=== PATIENT | male | born 1960 | race Caucasian/White ===

== ENCOUNTER → 2020-07-22 | Outpatient (CLI) | payer MEDICARE, MEDICAID ==
--- NOTE | 2020-07-22 15:55 | Diagnostic Imaging Report ---
INDICATION: Pain, status post injury. COMPARISON: None. FINDINGS: Multiple radiographic views of the right hand were obtained. Image quality is degraded by limited patient mobility. Osseous structures show no acute fracture. Joint spaces are maintained. No lytic or blastic bony lesions are seen. The soft tissues appear unremarkable. No radiopaque foreign bodies are identified. IMPRESSION: Unremarkable radiographic exam of the right hand. Dictated by: Dictated on workstation # [id number]
== END ==
LOC: RAD FS 10:35
PROVIDERS: ATTEND Family Medicine
DX: S69.91XA Unspecified injury of right wrist, hand and finger(s), initial encounter (principal)
CPT/HCPCS: 73130

== ENCOUNTER → 2020-09-01 | Outpatient (CLI) | payer MEDICARE, MEDICAID ==
--- NOTE | 2020-09-01 15:11 | Diagnostic Imaging Report ---
INDICATION: Left elbow pain. AP, oblique, and lateral views of the left elbow were obtained. No fracture or acute bony abnormality is seen. Joint spaces are unremarkable. IMPRESSION: Negative left elbow. Dictated by: Dictated on workstation # [id number]
== END ==
LOC: RAD FS 10:24
PROVIDERS: ATTEND Nurse Practitioner
DX: M25.522 Pain in left elbow (principal)
CPT/HCPCS: 73080

== ENCOUNTER 2022-01-18 13:46 | Emergency (ER) | payer MEDICARE, MEDICAID ==
--- NOTE | 2022-01-18 14:13 | ED Chest Pain ---
General Stated Complaint: CHEST PAIN History of Present Illness Date Seen by Provider: Jan 18, 2022 Time Seen by Provider: 14:00 Initial Comments 61-year-old male with PMH of cerebral palsy/mild intellectual disability from [facility]- care facility/diabetes type 2/HTN/depression/bound to wheelchair due to quadriplegia, is brought in with complaints of chest pressure radiating to left shoulder, which began today morning. Patient is a non-smoker and has an allergy to aspirin. Denies fever, abdominal pain, headache, dizziness, diarrhea, constipation. Allergies and Home Medications Allergies Coded Allergies: aspirin (Verified Allergy, Unknown, 01/18/22) Patient Home Medication List Home Medication List Reviewed: Yes Famotidine (Pepcid) 20 Mg Tablet, 20 MG PO BID Prescribed by: JANETH HERNANDES MD on 01/18/221957 Review of Systems Review of Systems Constitutional: no symptoms reported EENTM: No Symptoms Reported Respiratory: No Symptoms Reported Cardiovascular: Chest Pain Gastrointestinal: No Symptoms Reported, Other (acid reflux) Genitourinary: No Symptoms Reported Musculoskeletal: no symptoms reported Skin: no symptoms reported Psychiatric/Neurological: No Symptoms Reported Endocrine: No Symptoms Reported Hematologic/Lymphatic: No Symptoms Reported Physical Exam Vital Signs Vital Signs - First Documented 01/18/22 13:50 Temp 36.8 Pulse 99 Resp 24 B/P (MAP) 89/53 (65) Pulse Ox 96 O2 Delivery Room Air Capillary Refill : Height, Weight, BMI Height: '" Weight: lbs. oz. kg; BMI Method: General Appearance: No Apparent Distress HEENT: PERRL/EOMI Neck: Non Tender, Supple Respiratory: Chest Non Tender, Lungs Clear, Normal Breath Sounds, No Accessory Muscle Use, No Respiratory Distress Cardiovascular: Regular Rate, Rhythm Gastrointestinal: Non Tender, Soft Neurologic/Psychiatric: Alert, Oriented x3, Other (paraplegic) Lymphatic: No Adenopathy Focused Exam Lactate Level 01/18/22 14:48: Lactic Acid Level 1.20 Lactic Acid Level Laboratory Tests Test 01/18/22 14:48 Lactic Acid Level 1.20 MMOL/L (0.50-2.00) Progress/Results/Core Measures Results/Orders Lab Results Laboratory Tests Test 01/18/22 14:09 01/18/22 14:48 01/18/22 18:01 Range/Units White Blood Count 13.2 H 4.3-11.0 10^3/uL Red Blood Count 5.15 4.30-5.52 10^6/uL Hemoglobin 15.0 13.3-17.7 g/dL Hematocrit 44 40-54 % Mean Corpuscular Volume 86 80-99 fL Mean Corpuscular Hemoglobin 29 25-34 pg Mean Corpuscular Hemoglobin Concent 34 32-36 g/dL Red Cell Distribution Width 13.2 10.0-14.5 % Platelet Count 222 130-400 10^3/uL Mean Platelet Volume 10.2 9.0-12.2 fL Immature Granulocyte % (Auto) 0 % Neutrophils (%) (Auto) 67 42-75 % Lymphocytes (%) (Auto) 24 12-44 % Monocytes (%) (Auto) 6 0-12 % Eosinophils (%) (Auto) 2 0-10 % Basophils (%) (Auto) 1 0-10 % Neutrophils # (Auto) 8.9 H 1.8-7.8 10^3/uL Lymphocytes # (Auto) 3.1 1.0-4.0 10^3/uL Monocytes # (Auto) 0.9 0.0-1.0 10^3/uL Eosinophils # (Auto) 0.2 0.0-0.3 10^3/uL Basophils # (Auto) 0.1 0.0-0.1 10^3/uL Immature Granulocyte # (Auto) 0.0 0.0-0.1 10^3/uL Prothrombin Time 12.5 12.2-14.7 SEC INR Comment 0.9 0.8-1.4 Activated Partial Thromboplast Time 27 24-35 SEC D-Dimer 0.24 0.00-0.49 UG/ML Sodium Level 136 135-145 MMOL/L Potassium Level 4.8 3.6-5.0 MMOL/L Chloride Level 102 98-107 MMOL/L Carbon Dioxide Level 24 21-32 MMOL/L Anion Gap 10 5-14 MMOL/L Blood Urea Nitrogen 21 H 7-18 MG/DL Creatinine 0.85 0.60-1.30 MG/DL Estimat Glomerular Filtration Rate 99 BUN/Creatinine Ratio 25 Glucose Level 162 H 70-105 MG/DL Calcium Level 8.6 8.5-10.1 MG/DL Corrected Calcium 8.8 8.5-10.1 MG/DL Magnesium Level 1.8 1.6-2.4 MG/DL Total Bilirubin 0.2 0.1-1.0 MG/DL Aspartate Amino Transf (AST/SGOT) 15 5-34 U/L Alanine Aminotransferase (ALT/SGPT) 25 0-55 U/L Alkaline Phosphatase 108 40-136 U/L Troponin I < 0.30 < 0.30 <0.30 NG/ML Pro-B-Type Natriuretic Peptide 54.6 <125.0 PG/ML Total Protein 6.8 6.4-8.2 GM/DL Albumin 3.8 3.2-4.5 GM/DL Urine Color YELLOW Urine Clarity CLEAR Urine pH 5.5 5-9 Urine Specific [place] 1.025 H 1.016-1.022 Urine Protein NEGATIVE NEGATIVE Urine Glucose (UA) NEGATIVE NEGATIVE Urine Ketones TRACE H NEGATIVE Urine Nitrite NEGATIVE NEGATIVE Urine Bilirubin NEGATIVE NEGATIVE Urine Urobilinogen 0.2 < = 1.0 MG/DL Urine Leukocyte Esterase NEGATIVE NEGATIVE Urine RBC (Auto) NEGATIVE NEGATIVE Urine RBC RARE /HPF Urine WBC RARE /HPF Urine Squamous Epithelial Cells 0-2 /HPF Urine Crystals NONE /LPF Urine Bacteria NEGATIVE /HPF Urine Casts NONE /LPF Urine Mucus SMALL H /LPF Urine Culture Indicated NO Lactic Acid Level 1.20 0.50-2.00 MMOL/L Urine Opiates Screen NEGATIVE NEGATIVE Urine Oxycodone Screen NEGATIVE NEGATIVE Urine Methadone Screen NEGATIVE NEGATIVE Urine Propoxyphene Screen NEGATIVE NEGATIVE Urine Barbiturates Screen NEGATIVE NEGATIVE Ur Tricyclic Antidepressants Screen NEGATIVE NEGATIVE Urine Phencyclidine Screen NEGATIVE NEGATIVE Urine Amphetamines Screen NEGATIVE NEGATIVE Urine Methamphetamines Screen NEGATIVE NEGATIVE Urine Benzodiazepines Screen POSITIVE H NEGATIVE Urine Cocaine Screen NEGATIVE NEGATIVE Urine Cannabinoids Screen NEGATIVE NEGATIVE Influenza Type A (RT-PCR) Not Detected Not Detecte Influenza Type B (RT-PCR) Not Detected Not Detecte SARS-CoV-2 RNA (RT-PCR) Not Detected Not Detecte My Orders Orders - JANETH HERNANDES MD Cbc With Automated Diff (01/18/22 14:17) Comprehensive Metabolic Panel (01/18/22 14:17) Fibrin Degradation Products (01/18/22 14:17) Drug Screen Stat (Urine) (01/18/22 14:17) Lactic Acid Analyzer (01/18/22 14:17) Magnesium (01/18/22 14:17) Ua Culture If Indicated (01/18/22 14:17) Troponin I Fs (01/18/22 14:17) Protime With Inr (01/18/22 14:17) Partial Thromboplastin Time (01/18/22 14:17) Probnp Fs (01/18/22 14:17) Chest 1 View Ap/Pa Only (01/18/22 14:18) Continuous Ekg Monitoring (01/18/22 14:18) Ekg Tracing (01/18/22 14:18) Covid 19 Inhouse Test (01/18/22 14:19) Influenza A And B By Pcr (01/18/22 14:19) Ed Iv/Invasive Line Start (01/18/22 15:26) Ns Iv 1000 Ml (Sodium Chloride 0.9%) (01/18/22 15:30) Famotidine Injection (Pepcid Injection) (01/18/22 15:45) Pantoprazole Injection (Protonix Injecti (01/18/22 15:45) Troponin I Fs (01/18/22 16:00) Ekg Tracing (01/18/22 16:00) Medications Given in ED Current Medications Medications Dose Ordered Sig/Onesimo Route Start Time Stop Time Status Last Admin Dose Admin Famotidine 20 mg ONCE ONCE IVP 01/18/22 15:45 01/18/22 15:46 DC 01/18/22 15:55 20 MG Pantoprazole 40 mg ONCE ONCE IV 01/18/22 15:45 01/18/22 15:46 DC 01/18/22 15:55 40 MG Vital Signs/I&O 01/18/22 01/18/22 13:50 20:15 Temp 36.8 Pulse 99 83 Resp 24 18 B/P (MAP) 89/53 (65) 107/61 Pulse Ox 96 97 O2 Delivery Room Air Room Air Progress Progress Note : Progress Note 1. GERD: ACS RULED OUT: - CXR: unremarkable - Trop/ EKG x 2: non-ischemic - Other labs unremarkable. COVID test negative - Protonix and Pepcid in ER, with improvement and resolution of symptoms. No chest pain in the ER - Pt is already on Omeprazole - Prescription for pepcid 20mg bid for 10 days - Follow up with PCP in 3 to 5 days - Return to ER if symptoms worsen or do not improve -The patient was seen in the ED, and treated appropriately to presentation at a specific point in time. Patient is informed that there is a possibility that disease and illness can evolve and change in acuity rapidly or slowly after patient is discharged from the ER. Precautionary advice given to the patient for immediate return to ER if symptoms worsen or do not resolve, and to seek emergency care sooner rather than later. Pt also advised on the importance of PCP follow up and compliance with management and follow up plan with PCP and/or specialist, as this is part of the management plan. Pt verbally expressed understanding. Departure Impression Primary Impression: Gastroesophageal reflux disease Qualified Codes: K21.9 - Gastro-esophageal reflux disease without esophagitis Additional Impression: Indigestion Disposition: 01 HOME, SELF-CARE Condition: Improved Departure-Patient Inst. Referrals: POPPY LYON MD (PCP) Primary Care Physician Patient Instructions: Chest Pain That Is Not Caused by the Heart (DC), Acid Reflux and Gastroesophageal Reflux Disease in Adults Add. Discharge Instructions: Pt is already on Omeprazole Prescription for pepcid 20mg bid for 10 days Follow up with PCP in 3 to 5 days Return to ER if symptoms worsen or do not improve Scripts Famotidine (Pepcid) 20 Mg Tablet 20 MG PO BID for 10 Days, #20 TAB Prov: JANETH HERNANDES MD 01/18/22 JANETH HERNANDES MD Jan 18, 2022 14:13
[2022-01-18 14:27] LABS: BASOPHILS # (AUTO) 0.1 10^3/uL (0.0-0.1); BASOPHILS % (AUTO) 1 % (0-10); EOSINOPHILS # (AUTO) 0.2 10^3/uL (0.0-0.3); EOSINOPHILS % (AUTO) 2 % (0-10); HEMATOCRIT 44 % (40-54); LYMPHOCYTES # (AUTO) 3.1 10^3/uL (1.0-4.0); LYMPHOCYTES % (AUTO) 24 % (12-44); MEAN CORPUSCULAR HEMOGLOBIN 29 pg (25-34); MEAN CORPUSCULAR HGB CONC 34 g/dL (32-36); MEAN CORPUSCULAR VOLUME 86 fL (80-99); MEAN PLATELET VOLUME 10.2 fL (9.0-12.2); MONOCYTES # (AUTO) 0.9 10^3/uL (0.0-1.0); MONOCYTES % (AUTO) 6 % (0-12); NEUTROPHILS # (AUTO) 8.9 10^3/uL (1.8-7.8); NEUTROPHILS % (AUTO) 67 % (42-75); PLATELET COUNT 222 10^3/uL (130-400); WHITE BLOOD COUNT 13.2 10^3/uL (4.3-11.0)
[2022-01-18 14:45] LABS: FIBRIN DEGRADATION PRODUCTS 0.24 UG/ML (0.00-0.49); INR 0.9 (0.8-1.4); PROTHROMBIN TIME PATIENT 12.5 SEC (12.2-14.7)
--- NOTE | 2022-01-18 14:47 | Diagnostic Imaging Report ---
INDICATION: Chest pain. Frontal chest obtained at 02:23 p.m. There is no prior study for comparison. Heart and mediastinal silhouette are normal in appearance. The lungs are clear. There is no pneumothorax or pleural fluid. IMPRESSION: Negative chest. Dictated by: Dictated on workstation # [id number]
[2022-01-18 14:54] LABS: BUN/CREATININE RATIO 25; CALCIUM 8.6 MG/DL (8.5-10.1); CARBON DIOXIDE 24 MMOL/L (21-32); CHLORIDE 102 MMOL/L (98-107); CREATININE SERUM 0.85 MG/DL (0.60-1.30); GFR ESTIMATED 99; GLUCOSE 162 MG/DL (70-105); POTASSIUM 4.8 MMOL/L (3.6-5.0); SODIUM 136 MMOL/L (135-145)
[2022-01-18 14:55] LABS: ALANINE AMINOTRANSFERASE 25 U/L (0-55); ALBUMIN 3.8 GM/DL (3.2-4.5); ALKALINE PHOSPHATASE 108 U/L (40-136); BILIRUBIN,TOTAL 0.2 MG/DL (0.1-1.0); MAGNESIUM 1.8 MG/DL (1.6-2.4); TOTAL PROTEIN 6.8 GM/DL (6.4-8.2)
[2022-01-18 15:04] LABS: BILIRUBIN,URINE NEGATIVE (NEGATIVE); CLARITY,URINE CLEAR; COLOR,URINE YELLOW; GLUCOSE, URINE (UA) NEGATIVE (NEGATIVE); KETONES,URINE TRACE (NEGATIVE); LEUKOCYTE ESTERASE ,URINE NEGATIVE (NEGATIVE); NITRITE,URINE NEGATIVE (NEGATIVE); PH,URINE 5.5 (5-9); PROTEIN,URINE NEGATIVE (NEGATIVE)
[2022-01-18 15:13] LABS: BACTERIA,URINE NEGATIVE /HPF; RBC,URINE RARE /HPF; SQUAMOUS EPITHELIAL CELL,UR 0-2 /HPF; WBC,URINE RARE /HPF
[2022-01-18 15:14] LABS: AMPHETAMINE SCREEN, URINE NEGATIVE (NEGATIVE); BARBITURATE SCREEN URINE NEGATIVE (NEGATIVE); BENZODIAZEPINES SCREEN URINE POSITIVE (NEGATIVE); CANNABINOID SCREEN, URINE NEGATIVE (NEGATIVE); COCAINE SCREEN URINE NEGATIVE (NEGATIVE); METHADONE STAT NEGATIVE (NEGATIVE); OPIATE SCREEN URINE NEGATIVE (NEGATIVE); OXYCODONE STAT NEGATIVE (NEGATIVE); PROPOXYPHENE STAT NEGATIVE (NEGATIVE); TRICYCLIC ANTIDEPRESSANTS SCRE NEGATIVE (NEGATIVE)
[2022-01-18] MEDS ORDERED: NS IV 1000 ML 1,000 ML IV SCH (15:30)
[2022-01-18] MEDS ORDERED: FAMOTIDINE 20MG/2ML IV (PEPCID) IVP ONE (15:45)
[2022-01-18] MEDS ORDERED: PANTOPRAZOLE 40 MG (PROTONIX) VIAL IV ONE (15:45)
[2022-01-18] MEDS ORDERED: FAMO-119 PO (19:58)
[2022-01-18 20:15] VITALS: BP 107/61
== END 2022-01-18 20:16 | disposition home or self-care (01) ==
LOC: EDUNIT# 13:46 → ER FS 13:47
DX: K21.9 Gastro-esophageal reflux disease without esophagitis (principal); K30 Functional dyspepsia; G82.50 Quadriplegia, unspecified; Z99.3 Dependence on wheelchair; Z88.6 Allergy status to analgesic agent; Z20.822 Contact with and (suspected) exposure to COVID-19
CPT/HCPCS: 36415; 71045; 80053; 80306; 81000; 83605; 83735; 83880; 84484; 85025; 85379; 85610; 85730; 87636; 93005

== ENCOUNTER 2022-03-03 06:17 | Outpatient (CLI) | payer MEDICARE, MEDICAID ==
[~2022-03-03 06:17] MED LIST: FAMO-119 PO
[2022-03-12] MEDS ORDERED: DOCU100C37 PO (16:11)
[2022-03-12] MEDS ORDERED: OXYB10TA29 PO (16:11)
[2022-03-12] MEDS ORDERED: BACL10TA PO (16:11)
[2022-03-12] MEDS ORDERED: PANT40TA52 PO (16:11)
[2022-03-12] MEDS ORDERED: LISI40TA9 PO (16:11)
[2022-03-12] MEDS ORDERED: ATOR10TA66 PO (16:11)
[2022-03-12] MEDS ORDERED: ALPR0.5T7 PO (16:11)
[2022-03-12] MEDS ORDERED: TRAM50TA3 PO (16:11)
[2022-03-12] MEDS ORDERED: INSU100I29 SQ (16:11)
[2022-03-12] MEDS ORDERED: HYDR12.56 PO (16:11)
[2022-03-12] MEDS ORDERED: GLIP5TAB13 PO (16:11)
[2022-03-12] MEDS ORDERED: FLUO20CA48 PO (16:11)
[2022-03-12] MEDS ORDERED: INSU100I14 SQ (16:11)
== END 2022-03-12 16:15 | disposition home or self-care (01) ==
LOC: PREOP 06:17
PROVIDERS: ATTEND Surgery
DX: Z01.818 Encounter for other preprocedural examination (principal)

== ENCOUNTER 2022-03-16 11:36 | Day surgery (SDC) | payer MEDICARE, MEDICAID ==
[2022-03-16] VITALS (7 sets, daily range): BP systolic 99–108; BP diastolic 54–67
[~2022-03-16 11:36] MED LIST changes: +ALPR0.5T7 PO; +ATOR10TA66 PO; +BACL10TA PO; +DOCU100C37 PO; +FLUO20CA48 PO; +GLIP5TAB13 PO; +HYDR12.56 PO; +INSU100I14 SQ; +INSU100I29 SQ; +LISI40TA9 PO; +OXYB10TA29 PO; +PANT40TA52 PO; +TRAM50TA3 PO
[2022-03-16] MEDS ORDERED: LACTATED RINGERS 1,000 ML IV STA (11:44)
[2022-03-16] MEDS ORDERED: LACTATED RINGERS 1,000 ML IV ONE (11:53)
--- NOTE | 2022-03-16 13:30 | Progress Note-Pre Operative ---
Pre-Operative Progress Note Date of Available H&P: Feb 15, 2022 Date H&P Reviewed: Mar 16, 2022 Time H&P Reviewed: 13:30 History & Physical: H&P Reviewed, Patient Examed, No changes noted Pre-Operative Diagnosis: screening colonoscopy RAMIRO SENA DO Mar 16, 2022 13:30
[2022-03-16] MEDS ORDERED: PROPOFOL INJECTION 50 ML IV ONE (13:51)
--- NOTE | 2022-03-16 14:36 | Anesthesia-General Post-Op ---
MAC Patient Condition Mental Status/LOC: Same as Preop Cardiovascular: Satisfactory Nausea/Vomiting: Absent Respiratory: Satisfactory Pain: Controlled Complications: Absent Post Op Complications Complications None Follow Up Care/Instructions Patient Instructions None needed. Anesthesiology Discharge Order Discharge Order Patient is doing well, no complaints, stable vital signs, no apparent adverse anesthesia problems. No complications reported per nursing. ANNETTE VEANS CRNA Mar 16, 2022 14:36
--- NOTE | 2022-03-16 15:29 | Discharge Inst-Simple/Standard ---
Discharge Inst-Standard Patient Instructions/Follow Up Plan of Care/Instructions/FU: 2 weeks Yessi Activity as Tolerated: Yes Discharge Diet: Regular Diet RAMIRO SENA DO Mar 16, 2022 15:28
--- NOTE | 2022-03-17 03:24 | OPERATIVE REPORT ---
DATE OF SERVICE: 03/16/2022 PREOPERATIVE DIAGNOSIS: Screening colonoscopy. POSTOPERATIVE DIAGNOSES: Colon polyps, diverticulosis. PROCEDURE PERFORMED: Colonoscopy with snare polypectomy x4. SURGEON: Ramiro Dickson DO. ANESTHESIA: Per [employer]. ESTIMATED BLOOD LOSS: None. COMPLICATIONS: None. INDICATIONS: The patient is a 61-year-old male needing screening colonoscopy. He understands risks and benefits of procedure and wished to proceed. Consent was signed in the chart. DESCRIPTION OF PROCEDURE: The patient was taken to the endoscopy suite, placed in left lateral recumbent position. Timeout was performed. Digital rectal exam was performed. No palpable polyps, masses or ulcerations. Scope was inserted in the rectum, advanced well as cecum with minimal difficulty. Prep was adequate with irrigation and suction. Scope was then slowly retracted back. No polyps, masses or ulcerations within the cecum, ascending colon, hepatic flexure. Two polyps were present, which snare polypectomies were performed. Scope was then continuously retracted back until the transverse colon. In the splenic flexure, another polyp was present, which snare polypectomy was performed. Scope was then continuously retracted back noting diverticulosis. There were no polyps, masses or ulcerations in the descending colon. In the sigmoid colon, a larger polyp was present, which snare polypectomy was performed removing polyp in a couple pieces with snare. These were obtained for specimen. Scope was then continuously retracted back into the rectum, where a scope was also retroflexed noting no other pathology. Scope was returned to its normal position, slowly withdrawn until completely removed. The patient tolerated the procedure well without any complications, taken to recovery room in stable condition. RECOMMENDATIONS: The patient will need repeat colonoscopy in 5 years. He will follow up on pathology in a couple of weeks. Recommend high fiber diet due to diverticulosis. Any issues before that be seen at that time. Job ID: [id number] DocumentID: [id number] Dictated Date: 03/16/2022 15:48:06 Guide Escort Date: 03/17/2022 03:22:34 Dictated By: RAMIRO DICKSON DO [facility]
== END 2022-03-16 15:43 | disposition home or self-care (01) ==
LOC: ENDO 11:36
PROVIDERS: ATTEND Surgery
DX: Z12.11 Encounter for screening for malignant neoplasm of colon (principal); D12.3 Benign neoplasm of transverse colon; D12.5 Benign neoplasm of sigmoid colon; K57.30 Diverticulosis of large intestine without perforation or abscess without bleeding; G80.9 Cerebral palsy, unspecified; E11.9 Type 2 diabetes mellitus without complications; Z79.84 Long term (current) use of oral hypoglycemic drugs; Z79.4 Long term (current) use of insulin; Z79.02 Long term (current) use of antithrombotics/antiplatelets

== ENCOUNTER → 2022-10-14 | Outpatient (CLI) | payer MEDICARE, MEDICAID ==
[~2022-10-14] MED LIST changes: -INSU100I29 SQ; +INSU100I30 SQ
--- NOTE | 2022-10-14 11:18 | Diagnostic Imaging Report ---
INDICATION: Left shoulder pain. TECHNIQUE: AP, transscapular, and transaxillary views of the left shoulder were obtained. FINDINGS: The views are somewhat limited. There are degenerative changes of the AC joint and glenohumeral joint with no overt fracture or dislocation. IMPRESSION: Somewhat limited study showing degenerative changes but no definite acute abnormality. Dictated by: Dictated on workstation # [id number]
== END ==
LOC: RAD FS 09:30
PROVIDERS: ATTEND Family Medicine
DX: M19.012 Primary osteoarthritis, left shoulder (principal)
CPT/HCPCS: 73030